=== PATIENT | female | born 1995 | race Caucasian/White ===

== ENCOUNTER 2018-03-03 21:37 | Emergency (ER) | payer MEDICAID ==
[2018-03-03 21:52] VITALS: BP 136/92; PULSE 69; RESP 16; TEMP 99.1
--- NOTE | 2018-03-03 23:01 | ED ---
General Adult HPI - General Chief complaint: Recheck/Abnormal Lab/Rx Stated complaint: Needle stick/[facility] Time Seen by Provider: 03/03/18 22:33 Source: patient, RN notes reviewed Mode of arrival: ambulatory Limitations: no limitations - History of Present Illness Initial comments: This is a 22-year-old female who presents to the emergency department with chief complaint of work-related needlestick. Patient states she is unemployed here at [facility] [employer] [facility] on the 6th floor. She states that she was administering insulin with a hypodermic needle to a 56-year-old male patient. She states that she then went to apply the And accidentally hit patient in the shoulder and poked herself in the left index finger. Patient states that it did draw blood. Patient denies any medical issues. States she is up-to-date with vaccinations. Denies fever, chills, chest pain, shortness of breath, abdominal pain, nausea or vomiting, constipation or diarrhea, dysuria or hematuria, numbness or tingling, headache or vision changes. - Related Data Home Medications Medication Instructions Recorded Confirmed Tri-Femynor 28 1 tab PO DAILY 03/03/18 03/03/18 Allergies Allergy/AdvReac Type Severity Reaction Status Date / Time No Known Allergies Allergy Verified 03/03/18 22:46 Review of Systems ROS Statement: Those systems with pertinent positive or pertinent negative responses have been documented in the HPI. ROS Other: All systems not noted in ROS Statement are negative. Past Medical History Past Medical History: No Reported History History of Any Multi-Drug Resistant Organisms: None Reported Past Surgical History: No Surgical Hx Reported Past Psychological History: No Psychological Hx Reported Smoking Status: Never smoker Past Alcohol Use History: None Reported Past Drug Use History: None Reported General Exam - General Exam Comments Initial Comments: General: Awake and alert, well-developed; in no apparent distress. HEENT: Head atraumatic, normocephalic. Pupils are equal, round and reactive to light. Extraocular movements intact. Oropharynx moist without erythema or exudate. Neck: Supple. Normal ROM. Cardiovascular: Regular rate and rhythm. No murmurs, rubs or gallops. Chest symmetrical. Respiratory: Lungs clear to auscultation bilaterally. No wheezes, rales or rhonchi. Normal respiratory effort with no use of accessory muscles. Musculoskeletal: Normal ROM, no tenderness bilateral upper and lower extremities. Ambulating normally. Skin: [place], warm and dry without rashes or lesions. Neurological: Alert and oriented x3. CN II-XII grossly intact. Speech is fluent and answers are appropriate. No focal neuro deficits. Psychiatric: Normal mood and affect. No overt signs of depression or anxiety noted. Limitations: no limitations Course Vital Signs 03/03/18 21:50 Temperature 99.1 F Pulse Rate 69 Respiratory 16 Rate Blood Pressure 136/92 O2 Sat by Pulse 96 Oximetry Medical Decision Making - Medical Decision Making This is a 22-year-old female who presents to the emergency department with chief complaint of work-related needlestick. Patient is an employee here at the hospital. She was accidentally struck in the left index finger with a hypodermic insulin needle. Patient is up-to-date with vaccinations. She states that she did cleanse the area thoroughly. Lab work was drawn and is pending. Patient was provided with information regarding HIV prophylaxis, however she declines at this time. Vital signs are stable and she is in no acute distress. She will be discharged home at this time. All questions answered. Disposition Clinical Impression: Needlestick injury of finger Disposition: HOME SELF-CARE Condition: Good Instructions: Needle Stick Injuries (ED), Postexposure Prophylaxis (ED) Additional Instructions: Please follow up with primary care provider within 1-2 days. Return to emergency department if symptoms should worsen or any concerns arise. Is patient prescribed a controlled substance at d/c from ED?: No Referrals: Teresa Cratagena MD [Primary Care Provider] - 1-2 days Time of Disposition: 23:01
== END 2018-03-03 23:15 | disposition home or self-care (01) ==
LOC: EC 21:37
DX: S61.231A Puncture wound without foreign body of left index finger without damage to nail, initial encounter (principal); Z79.3 Long term (current) use of hormonal contraceptives; W46.0XXA Contact with hypodermic needle, initial encounter; Y92.239 Unspecified place in hospital as the place of occurrence of the external cause; Y93.89 Activity, other specified
CPT/HCPCS: 99282

== ENCOUNTER 2019-03-23 23:43 | Emergency (ER) | payer MEDICAID, OTHER ==
[2019-03-23 23:49] VITALS: BP 135/91; PULSE 73; RESP 16; TEMP 73
--- NOTE | 2019-03-24 00:37 | ED ---
Eye Problem HPI - General Chief complaint: Eye Problems Stated complaint: [facility] Bodily Fluids in eye Time Seen by Provider: 03/24/19 00:06 Source: patient Mode of arrival: ambulatory Limitations: no limitations - History of Present Illness Initial comments: 23-year-old female patient presents to the emergency department today for evaluation after exposure to body fluids. 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 Patient states she did perform extensive irrigation of the eye. She states she is up-to-date on immunizations including hepatitis B. Patient presents for exposure lab testing. She denies any other concerns or symptoms. - Related Data Home Medications Medication Instructions Recorded Confirmed Tri-Femynor 28 1 tab PO DAILY 03/03/18 03/03/18 Allergies Allergy/AdvReac Type Severity Reaction Status Date / Time No Known Allergies Allergy Verified 03/23/19 23:49 Review of Systems ROS Statement: Those systems with pertinent positive or pertinent negative responses have been documented in the HPI. ROS Other: All systems not noted in ROS Statement are negative. Past Medical History Past Medical History: No Reported History History of Any Multi-Drug Resistant Organisms: None Reported Past Surgical History: No Surgical Hx Reported Past Psychological History: No Psychological Hx Reported Smoking Status: Never smoker Past Alcohol Use History: None Reported Past Drug Use History: None Reported General Exam Limitations: no limitations General appearance: alert, in no apparent distress, other (This is a well- developed, well-nourished adult female patient in no acute distress. Vital signs upon presentation are pulse 73, respirations 16, blood pressure 135/91, pulse ox 100% on room air) Eye exam: Present: normal appearance, PERRL, EOMI. Absent: scleral icterus, conjunctival injection, periorbital swelling Respiratory exam: Present: normal lung sounds bilaterally. Absent: respiratory distress, wheezes, rales, rhonchi, stridor Cardiovascular Exam: Present: regular rate, normal rhythm, normal heart sounds. Absent: systolic murmur, diastolic murmur, rubs, gallop, clicks Neurological exam: Present: alert, oriented X3, CN II-XII intact Psychiatric exam: Present: normal affect, normal mood Skin exam: Present: warm, dry, intact, normal color. Absent: rash Course Vital Signs 03/23/19 23:46 Temperature 73 F L Pulse Rate 73 Respiratory 16 Rate Blood Pressure 135/91 O2 Sat by Pulse 100 Oximetry Medical Decision Making - Medical Decision Making 23-year-old female patient presented to the emergency department today for evaluation after exposure to body fluids in her left eye. Physical examination was unremarkable. Patient did irrigate the eye prior to arrival. We did draw exposure labs. Call back from the lab reports that the source is HIV negative, patient was updated regarding this. She'll be discharged follow-up with employee health for further evaluation and testing. Return parameters were discussed in detail. She verbalizes understanding and agrees with this plan. Disposition Clinical Impression: Patient exposure to body fluids Disposition: HOME SELF-CARE Condition: Good Instructions (If sedation given, give patient instructions): Body Substance Exposure (ED) Additional Instructions: Follow-up with employee health services for recheck as soon as possible. Return to the emergency department immediately for any new, worsening, or concerning symptoms. Is patient prescribed a controlled substance at d/c from ED?: No Referrals: Teresa Cartagena MD [Primary Care Provider] - 1-2 days Time of Disposition: 00:37
== END 2019-03-24 01:33 | disposition home or self-care (01) ==
LOC: EC 23:43
DX: Z77.21 Contact with and (suspected) exposure to potentially hazardous body fluids (principal)
CPT/HCPCS: 99283